=== PATIENT | female | born 1945 | race American Indian/Alaskan Native ===

== ENCOUNTER 2017-09-15 19:10 | Inpatient (IN) | payer MEDICARE, BC ==
[2017-09-15] MEDS ORDERED: Albuterol-Ipratrop 3 mg / 0.5 (3 ml) UD IH STA (19:52)
[2017-09-15] MEDS ORDERED: Albuterol-Ipratrop 3 mg / 0.5 (3 ml) UD ONE (19:59)
[2017-09-15 20:08] LABS: BASO # 0.01 K/mm3 (0.0-2.0); BASO % 0.2 % (0.0-3.0); EOS # 0.1 (0.0-0.7); EOS % 1.6 % (1.5-5.0); GRAN # 3.28 (1.4-6.5); GRAN % 57.7 % (50.0-68.0); HEMOGLOBIN 11.3 g/dL (12.0-16.0); LYMPH # 1.9 (1.2-3.4); LYMPH % 33.8 % (22.0-35.0); MEAN CELL VOLUME 77.6 fl (80.0-105.0); MEAN CORPUSCULAR HEMOGLOBIN 25.1 pg (25.0-35.0); MEAN CORPUSCULAR HGB CONC 32.4 g/dl (31.0-37.0); MEAN PLATELET VOLUME 10.6 fl (7.0-11.0); MONO # 0.4 (0.1-0.6); MONO % 6.7 % (1.0-6.0); RBC 4.5 10^6/uL (3.5-6.1); RED CELL DISTRIBUTION WIDTH 16.4 % (11.5-14.5); WHITE BLOOD COUNT 5.7 10^3/ul (4.5-11.0)
[2017-09-15 20:15] LABS: ALB/GLOB RATIO 1.5 (1.1-1.8); ALBUMIN 4.7 g/dL (3.0-4.8); ALT/SGPT 39 U/L (7-56); AST/SGOT 33 U/L (14-36); BLOOD UREA NITROGEN 19 mg/dL (7-21); CALCIUM 9.1 mg/dL (8.4-10.5); GFR AFRICAN-AMERICAN > 60; GFR NON-AFRICAN AMERICAN > 60; HDL CHOLESTEROL 68 mg/dL (29-60)
[2017-09-15 20:26] LABS: B-TYPE NATRIURETIC PEPTIDE 160 pg/mL (0-450); INR 1.05 (0.93-1.08); LDL CHOLESTEROL 69 mg/dL (0-129); PARTIAL THROMBOPLASTIN TIME 29.5 Seconds (25.1-36.5)
[2017-09-15 20:30] LABS: TROPONIN I < 0.01 ng/mL
--- NOTE | 2017-09-15 20:43 | ED PDOC ---
Arrival/HPI <Alin Chatman - Last Filed: 09/15/17 21:32> - General Historian: Patient <Shey Beavers A - Last Filed: 09/16/17 01:38> - General Chief Complaint: Shortness Of Breath Time Seen by Provider: 09/15/17 19:24 - History of Present Illness Narrative History of Present Illness (Text): 09/15/17 20:36 72yo female with past medical history of hypertension and Asthma who present with complaint of shortness of breath and intermittent numbness of her left side throughout today. States she uses her inhaler once at home. She denies chest pain, diaphoresis, fe3ver, chills, headache, slurred speech, focal weakness, nausea, vomiting, back pain, urinary/fecal incontinence, dizziness, any other complaint. (Shey Beavers A) Past Medical History - Provider Review Nursing Documentation Reviewed: Yes - Infectious Disease Hx of Infectious Diseases: None - Cardiac Hx Hypertension: Yes - Pulmonary Hx Asthma: Yes (last attack 12/2012) - Neurological Hx Neurological Disorder: Yes Other/Comment: occasional numbness and tingling in arms b/l - HEENT Hx HEENT Disorder: Yes Hx Cataracts: Yes (left eye) - Renal Hx Renal Disorder: No - Endocrine/Metabolic Hx Endocrine Disorders: No - Hematological/Oncological Hx Anemia: Yes - Integumentary Hx Dermatological Disorder: No - Musculoskeletal/Rheumatological Hx Arthritis: Yes (shoulders b/l) - Gastrointestinal Hx Gastrointestinal Disorders: No - Genitourinary/Gynecological Hx Genitourinary Disorders: No - Psychiatric Hx Psychophysiologic Disorder: No Hx Substance Use: No - Surgical History Hx Tonsillectomy: Yes (1954) - Anesthesia Hx Anesthesia: Yes Hx Anesthesia Reactions: No Hx Malignant Hyperthermia: No - Suicidal Assessment Feels Threatened In Home Enviroment: No <Shey Beavers A - Last Filed: 09/16/17 01:38> Family/Social History - Physician Review Nursing Documentation Reviewed: Yes Family/Social History: Unknown Family HX Smoking Status: Never Smoked Hx Alcohol Use: Yes Hx Substance Use: No <Shey Beavers A - Last Filed: 09/16/17 01:38> Allergies/Home Meds <Alin Chatman - Last Filed: 09/15/17 21:32> <Shey Beavers A - Last Filed: 09/16/17 01:38> Allergies/Adverse Reactions: Allergies No Known Allergies Allergy (Verified 07/15/13 14:37) Home Medications: Home Meds Medication Instructions Recorded Confirmed Aspirin 81 mg PO Q48H 02/28/12 07/15/13 Lisinopril 10 mg PO HS 02/28/12 07/15/13 Metoprolol Tartrate 50 mg PO BID 02/28/12 07/15/13 Multivitamin [Multi Vitamins] 1 tab PO DAILY 02/28/12 07/15/13 Cyanocobalamin [Vitamin B12] 100 mcg PO DAILY 05/05/13 07/15/13 Review of Systems - Physician Review All systems were reviewed & negative as marked: Yes - Review of Systems Constitutional: Normal Eyes: Normal ENT: Normal Respiratory: SOB Cardiovascular: Normal Gastrointestinal: Normal Genitourinary Female: Normal Musculoskeletal: Normal Skin: Normal Neurological: Other (PAresthesia of left sided body). absent: Headache, Dizziness, Focal Weakness, Speech Changes, Facial Droop Endocrine: Normal Hemo/Lymphatic: Normal Psychiatric: Normal <Diru,Happiness A - Last Filed: 09/16/17 01:38> Physical Exam Vital Signs Reviewed: Yes Temperature: Afebrile Blood Pressure: Normal Pulse: Regular Respiratory Rate: Normal Appearance: Positive for: Well-Appearing, Non-Toxic, Comfortable Pain Distress: None Mental Status: Positive for: Alert and Oriented X 3 - Systems Exam Head: Present: Atraumatic, Normocephalic Pupils: Present: PERRL Extroacular Muscles: Present: EOMI Conjunctiva: Present: Normal Mouth: Present: Moist Mucous Membranes Neck: Present: Normal Range of Motion Respiratory/Chest: Present: Clear to Auscultation, Good Air Exchange. No: Respiratory Distress, Accessory Muscle Use, Wheezes, Decreased Breath Sounds, Rales, Retracting, Rhonchi Cardiovascular: Present: Regular Rate and Rhythm, Normal S1, S2. No: Murmurs Abdomen: No: Tenderness, Distention, Peritoneal Signs Back: Present: Normal Inspection Upper Extremity: Present: Normal Inspection. No: Cyanosis, Edema Lower Extremity: Present: Normal Inspection. No: Edema Neurological: Present: GCS=15, CN II-XII Intact, Speech Normal, Motor Func Grossly Intact, Normal Sensory Function, Normal Cerebellar Funct, Norm Deep Tendon Reflexes, Gait Normal, Memory Normal, Normal 2Pt Descrimination Skin: Present: Warm, Dry, Normal Color. No: Rashes Psychiatric: Present: Alert, Oriented x 3, Normal Insight, Normal Concentration <Shey Beavers A - Last Filed: 09/16/17 01:38> Vital Signs Temp Pulse Resp BP Pulse Ox 09/16/17 00:59 71 18 160/73 H 100 09/15/17 19:30 20 98 09/15/17 19:21 98.3 F 79 18 169/67 H 98 Medical Decision Making <Alin Chatman - Last Filed: 09/15/17 21:32> <Shey Beavers A - Last Filed: 09/16/17 01:38> ED Course and Treatment: 09/15/17 22:04 FINDINGS: Brain: Areas of decreased attenuation noted within the periventricular and subcortical white matter likely related to chronic microangiopathic ischemic changes given the patient's stated age. No hemorrhage. Ventricles: Unremarkable. No ventriculomegaly. Bones/joints: Unremarkable. No acute fracture. Soft tissues: Unremarkable. Vasculature: Atherosclerotic calcifications of the carotid siphons.There is mild diffuse cerebral atrophy present, consistent with this patient's age. Sinuses: Unremarkable as visualized. No acute sinusitis. Mastoid air cells: Unremarkable as visualized. No mastoid effusion. IMPRESSION: No evidence of acute intracranial hemorrhage.CT can miss an acute nonhemorrhagic CVA. It should be noted that acute strokes may be initially radiologically occult on CT. If the patient is having persistent stroke like symptomatology, then MRI may be beneficial. 09/16/17 01:33 PT presented for stated history. She was neurologically intact. Her NIHSS was zero. she notes that paresthesia has been intermittent throughout the day. She denied any focal weakness, slurred speech in Emergency department. Her lung was CTA and she was not hypoxic. She does not have the symptoms that wwwill warrant for calling code alert at this time. Lab was ordered and reviewed. EKG NSR @ 71bpm Chest X-Ray NAD Pt needs further neuro evaluation. Case was DW Dr. Shah and pt was admitted to his service. (Shey torres A) - Lab Interpretations Lab Results: 09/15/17 19:30 09/15/17 19:30 Lab Results 09/15/17 21:40: Blood Type Confirm A POSITIVE 09/15/17 20:30: Blood Type A POSITIVE, Antibody Screen Negative, BBK History Checked No verified bt 09/15/17 19:30: Sodium 140, Potassium 4.0, Chloride 102, Carbon Dioxide 28, Anion Gap 15, BUN 19, Creatinine 0.8, Est GFR ( Amer) > 60, Est GFR (Non- Af Amer) > 60, Random Glucose 94, Calcium 9.1, Total Bilirubin 0.6, AST 33, ALT 39, Alkaline Phosphatase 61, Troponin I < 0.01, NT-Pro-B Natriuret Pep 160, Total Protein 7.8, Albumin 4.7, Globulin 3.1, Albumin/Globulin Ratio 1.5, Triglycerides 119, Cholesterol 173, LDL Cholesterol Direct 69, HDL Cholesterol 68 H 09/15/17 19:30: PT 12.0, INR 1.05, APTT 29.5 09/15/17 19:30: WBC 5.7, RBC 4.50, Hgb 11.3 L, Hct 34.9 L, MCV 77.6 L, MCH 25.1 , MCHC 32.4, RDW 16.4 H, Plt Count 231, MPV 10.6, Gran % 57.7, Lymph % (Auto) 33.8, [place] % (Auto) 6.7 H, Eos % (Auto) 1.6, Baso % (Auto) 0.2, Gran # 3.28, Lymph # (Auto) 1.9, [place] # (Auto) 0.4, Eos # (Auto) 0.1, Baso # (Auto) 0.01 - RAD Interpretation Radiology Orders: 09/15/17 19:48 HEAD W/O CONTRAST [CT] Stat 09/15/17 19:49 CHEST PORTABLE [RAD] Stat - Medication Orders Current Medication Orders: Discontinued Medications Albuterol/Ipratropium (Duoneb 3 Mg/0.5 Mg (3 Ml) Ud) 3 ml IH STAT STA Stop: 09/15/17 19:53 Last Admin: 09/15/17 20:22 Dose: 3 ml Aspirin (Aspirin) 325 mg PO STAT STA Stop: 09/15/17 19:49 Last Admin: 09/15/17 20:22 Dose: 325 mg Tramadol HCl (Ultram) 50 mg PO STAT STA Stop: 09/15/17 21:39 NIHSS Stroke Scale 3 - Date/Time Evaluation Performed Date Performed: 09/15/17 Time Performed: 20:05 When Was NIHSS Performed: Baseline - How Severe is the Stroke Level of Consciousness: 0=Alert LOC to Questions: 0=Both comments correct LOC to commands: 0=Obeys both correctly Best Gaze: 0=Normal Visual: 0=No visual loss Facial: 0=Normal Motor Arm - Left: 0=No drift Motor Arm - Right: 0=No drift Motor Leg - Left: 0=No drift Motor Leg - Right: 0=No drift Limb Ataxia: 0=Absent Sensory: 0=Normal Best Language: 0=No aphasia Dysarthia: 0=Normal articulation Extinction & Inattention (Neglect): 0=Normal, no object Score: 0 <Shey Beavers - Last Filed: 09/16/17 01:38> rTPA Inclusion/Exclusion - Refusal of Treatment Patient Refused Treatment: No - Inclusion Criteria for Altepase Patient is 18 years or Older: Yes The Clinical Diagnosis of Ischemic Stroke That is Causing a Potentially Disabling Neurological Deficit: No Time of Onset is Well Established to be Less Than 270 Minute Before Treatment Would Begin: No Risk/Benefit Discussed With Patient/Family Member Present: No - Exclusion Criteria for Altepase Uncontrolled Hypertension at Time of Treatment (Systolic BP above 185 or Diastolic BP above 110 mmHg): No Active Internal Bleeding: No Known Bleeding Diathesis Including but Not Limited to: Platelets Below 100,000/ mm,PTT Above 40 sec After Heparin Use, Current Use of Oral Anitcoagulant With INR Greater Than 1.7 or PT Greater Than 15 secs: No Evidence of an Intracranial Hemorrhage: No Evidence of Major Acute Infarct With Signs Greater Than 1/3 MCA Territory: No Suspicion of Subarachnoid Hemorrhage on Pretreatment Evaluation Even if CT Head Negative For Hemorrhage: No - Warning to TPA With Conditions Following Conditions Weighed Against Anticipated Benefit: No Condition: Stroke Serevity Too Mild <Shey Beavers - Last Filed: 09/16/17 01:38> - PA / TECHNICAL LABORATORY ASST / Resident Statement MAKSIM has reviewed & agrees with the documentation as recorded. MAKSIM has examined the patient and agrees with the treatment plan. <Alin Chatman - Last Filed: 09/15/17 21:32> Disposition/Present on Arrival <Alin Chatman - Last Filed: 09/15/17 21:32> - Present on Arrival Any Indicators Present on Arrival: No History of DVT/PE: No History of Uncontrolled Diabetes: No Urinary Catheter: No History of Decub. Ulcer: No History Surgical Site Infection Following: None - Disposition Have Diagnosis and Disposition been Completed?: Yes Disposition Time: 22:00 Patient Plan: Admission <Shey Beavers - Last Filed: 09/16/17 01:38> - Disposition Diagnosis: TIA (transient ischemic attack), Asthma Disposition: HOSPITALIZED Condition: STABLE
[2017-09-16 02:01] VITALS: RESP 20
[2017-09-16 03:23] VITALS: BMI 34.0
--- NOTE | 2017-09-16 09:04 | CP.PCM.PN ---
Subjective - Date & Time of Evaluation Date of Evaluation: 09/16/17 Time of Evaluation: 08:30 - Subjective Subjective: House Physician Resident Jaden Hunt, PGY-3 IM Called to see patient for complaint of left shoulder pain, nursing unable to reach PMD (Dr. Shah). On exam, patient is AAOx3 (self, location, year), good insight, reporting that this is exacerbation of her long-standing arthritis shoulder pain, which she experiences intermittently at home as well. Denies any loss of sensation or motor control in arm, ROM is limited 2/2 pain (which she also reports as baseline), but passive ROM remains intact, good distal pulses present (+2 radial, +1 ulnar), and sensation to touch intact throughout. Patient reports her home management of these pain flares is tylenol PRN, usually only needs 1 dose every few days. Reviewed ED documentation and prior admission notes, current labs, current orders, and home medications. LFTs on admission all within normal limits. Presented for abnormal paresthesias, Neuro consulted by PMD for TIA. However reported that she is tolerating her PO meds, so will give tylenol PO 650mg x1 for this pain. Nursing to continue to try reaching PMD for diet order. Objective - Vital Signs/Intake and Output Vital Signs (last 24 hours): Temp Pulse Resp BP Pulse Ox 97.8 F 63 20 165/72 H 98 09/16/17 07:59 09/16/17 07:59 09/16/17 07:59 09/16/17 07:59 09/16/17 07:59 Intake and Output: 09/16/17 09/16/17 06:59 18:59 Intake Total 80 Balance 80 - Medications Medications: Current Medications Albuterol/Ipratropium (Duoneb 3 Mg/0.5 Mg (3 Ml) Ud) 3 ml IH QIDRESP [facility] Aspirin (Ecotrin) 325 mg PO DAILY [facility] Famotidine (Pepcid) 40 mg PO HS [facility] Heparin Sodium (Porcine) (Heparin) 5,000 units SC Q12 [facility] PRN Reason: Protocol Lisinopril (Zestril) 10 mg PO HS [facility] Metoprolol Tartrate (Lopressor) 50 mg PO BID [facility] - Labs Labs: PT 12.0 SECONDS (9.4-12.5) 09/15/17 19:30 INR 1.05 (0.93-1.08) 09/15/17 19:30 APTT 29.5 Seconds (25.1-36.5) 09/15/17 19:30 - Constitutional Appears: Non-toxic, No Acute Distress - Head Exam Head Exam: NORMAL INSPECTION, NORMOCEPHALIC - Eye Exam Eye Exam: Normal appearance. absent: Conjunctival injection, Scleral icterus - ENT Exam ENT Exam: Mucous Membranes Moist - Respiratory Exam Respiratory Exam: NORMAL BREATHING PATTERN. absent: Respiratory Distress - Extremities Exam Additional comments: full passive ROM of LUE, full ROM of L hand/wrist, intact and equal sensation to touch throughout LUE - Psychiatric Exam Psychiatric exam: Normal Affect, Normal Mood - Skin Skin Exam: Dry, Intact, Normal Color, Warm
[2017-09-16] MEDS: Aspirin 325 mg EC Tablets PO SCH (09:29)
--- NOTE | 2017-09-16 10:30 | CT ---
Date of service: 09/15/2017 PROCEDURE: CT HEAD WITHOUT CONTRAST. HISTORY: LE paresthesia COMPARISON: None available. TECHNIQUE: Axial computed tomography images were obtained through the head/brain without intravenous contrast. Coronal and sagittal reconstructed images. Radiation dose: Total exam DLP = 989.62 mGy-cm. This CT exam was performed using one or more of the following dose reduction techniques: Automated exposure control, adjustment of the mA and/or kV according to patient size, and/or use of iterative reconstruction technique. FINDINGS: HEMORRHAGE: No intracranial hemorrhage. BRAIN: No mass effect or edema. No atrophy or chronic microvascular ischemic changes. VENTRICLES: Unremarkable. No hydrocephalus. CALVARIUM: Unremarkable. PARANASAL SINUSES: Unremarkable as visualized. No significant inflammatory changes. MASTOID AIR CELLS: Unremarkable as visualized. No inflammatory changes. OTHER FINDINGS: None. IMPRESSION: No acute intracranial abnormalities. No significant findings to account for the clinical presentation. Concordant results (preliminary interpretation) provided by [employer]. Procedure Completed: 21:24. Preliminary ([facility]) Report: Dictated and Authenticated: 22:02. Final Interpretation: 08:00. September 16, 2017.
--- NOTE | 2017-09-16 10:57 | RAD ---
Date of service: 09/15/2017 HISTORY: Code Stroke COMPARISON: 02/28/2012. FINDINGS: LUNGS: No active pulmonary disease. PLEURA: No significant pleural effusion identified, no pneumothorax apparent. CARDIOVASCULAR: No radiographic findings to suggest acute or significant cardiovascular disease. OSSEOUS STRUCTURES: No significant abnormalities. VISUALIZED UPPER ABDOMEN: Normal. OTHER FINDINGS: None. IMPRESSION: No active disease. No significant interval change compared to the prior examination(s).
[2017-09-16] MEDS: Albuterol-Ipratrop 3 mg / 0.5 (3 ml) UD IH SCH ×3 (12:19→20:34)
--- NOTE | 2017-09-16 12:39 | CARD ---
APPROVED REPORT Date of service: 09/16/2017 EKG Measurement Heart [id number] [id number] <Conclusion> Sinus bradycardia Minimal voltage criteria for LVH, may be normal variant Borderline ECG
--- NOTE | 2017-09-16 12:56 | CARD ---
APPROVED REPORT Date of service: 09/15/2017 EKG Measurement Heart [id number] <Conclusion> Normal sinus rhythm Minimal voltage criteria for LVH, may be normal variant Borderline ECG
--- NOTE | 2017-09-16 17:45 | CP.PCM.CON ---
History of Present Illness - History of Present Illness History of Present Illness: Miss Kelly is a 72 yr old woman with pmh of hypertension, and asthma who complains of numbness and tingling of her left arm and leg, with heaviness as well of left leg that has been occuring since yesterday afternoon. Miss Kelly says that it started suddenly but does not recall if her blood pressure was elevated at the time. Since then, she has not been able to walk properly. She denies word finding difficulty, dizziness, nausea, vomiting, or headache. PMH/PSH: as above.no strokes, no history of afib. FH/SH: , has one son. no tobacco, no etoh. All: nkda. on exam NIH stroke scale is 2. She has weakness of her left leg and decreased ft, pin in her left arm and leg. aaox3. PERRL. Cn 2-12 normal. no facial asymmetry. Speech fluent. Can name and repeat, no alexia, no apraxia. Motor: strength right upper limb,lower limb 5/5. left upper limb is 4/5, left lower limb 4/5 with hemiplegic gait. Senosry: decreased ft, pin in left upper and lower limb Cerebellar: no dysmetria, no ataxia. Gait: patient walks with a hemiplegic gait. +2 dtr ul and ll bl. Toes downgoing. no clonus. 7 Past Patient History - Infectious Disease Hx of Infectious Diseases: None - Past Medical History & Family History Past Medical History?: Yes - Past Social History Smoking Status: Never Smoked - CARDIAC Hx Hypertension: Yes - PULMONARY Hx Asthma: Yes (last attack 12/2012) - NEUROLOGICAL Hx Neurological Disorder: Yes Other/Comment: occasional numbness and tingling in arms b/l - HEENT Hx HEENT Problems: Yes Hx Cataracts: Yes (left eye) - RENAL Hx Chronic Kidney Disease: No - ENDOCRINE/METABOLIC Hx Endocrine Disorders: No - HEMATOLOGICAL/ONCOLOGICAL Hx Anemia: Yes - INTEGUMENTARY Hx Dermatological Problems: No - MUSCULOSKELETAL/RHEUMATOLOGICAL Hx Arthritis: Yes (Mode shoulders) - GASTROINTESTINAL Hx Gastrointestinal Disorders: No - GENITOURINARY/GYNECOLOGICAL Hx Genitourinary Disorders: No - PSYCHIATRIC Hx Psychophysiologic Disorder: No Hx Substance Use: No - SURGICAL HISTORY Hx Tonsillectomy: Yes (1955) - ANESTHESIA Hx Anesthesia: Yes Hx Anesthesia Reactions: No Hx Malignant Hyperthermia: No Meds Allergies/Adverse Reactions: Allergies Allergy/AdvReac Type Severity Reaction Status Date / Time No Known Allergies Allergy Verified 07/15/13 14:37 - Medications Medications: Current Medications Acetaminophen (Tylenol 325mg Tab) 650 mg PO TID [facility] Last Admin: 09/16/17 17:14 Dose: 650 mg Albuterol/Ipratropium (Duoneb 3 Mg/0.5 Mg (3 Ml) Ud) 3 ml IH QIDRESP [facility] Last Admin: 09/16/17 15:48 Dose: 3 ml Aspirin (Ecotrin) 325 mg PO DAILY [facility] Last Admin: 09/16/17 09:29 Dose: 325 mg Famotidine (Pepcid) 40 mg PO HS [facility] Heparin Sodium (Porcine) (Heparin) 5,000 units SC Q12 [facility] PRN Reason: Protocol Last Admin: 09/16/17 09:29 Dose: 5,000 units Lisinopril (Zestril) 10 mg PO HS [facility] Metoprolol Tartrate (Lopressor) 50 mg PO BID [facility] Last Admin: 09/16/17 17:13 Dose: 50 mg Results - Vital Signs Recent Vital Signs: Last Vital Signs Temp 98.2 F 09/16/17 17:12 Pulse 65 09/16/17 17:12 Resp 20 09/16/17 17:12 BP 185/84 H 09/16/17 17:13 Pulse Ox 98 09/16/17 17:12 - Labs Result Diagrams: 09/15/17 19:30 09/15/17 19:30 Assessment & Plan - Assessment and Plan (Free Text) Assessment: 72 yr old woman with probable right brower radiata stroke, etiology may lacunar but embolic is also a possiblity. We will start stroke workup. Plan: 1. MRI Brain without anna 2. aspirin 325 mg po daily 3. CTA head and neck with contrast 4. Lipid profile 5. PT/St/OT 6. ECHO 7. Please keep blood pressure at about 180/90. Thank you Dr. navarro
[2017-09-16] MEDS ORDERED: Iodixanol 320 mg/ml 150 ml Bottle IV ONE (22:17)
[2017-09-16] MEDS ORDERED: Iodixanol 320 MG/ML 100 ML BOTTLE IV ONE (23:33)
[2017-09-17] MEDS: Albuterol-Ipratrop 3 mg / 0.5 (3 ml) UD IH SCH ×4 (07:45→19:55)
--- NOTE | 2017-09-17 08:41 | HP ---
The patient was admitted today. A 72-year-old female came in because of chief complaint of left leg numbness and weakness. HISTORY OF PRESENT ILLNESS: A 72-year-old female with history of hypertension, hypercholesterolemia, and asthma, complained of sudden numbness, sudden tingling of the left arm, left leg with some heaviness in her left leg. The patient noted that on the day of admission in the morning, she came in at 5:00 p.m. to the emergency room for further evaluations. The patient denied any nausea, any headache, any vomiting, any dizziness. No trauma, no fever. No other complaints. PAST MEDICAL HISTORY: As I mentioned, hypertension, hypercholesterolemia, obesity, asthma. No history of cardiac disease or cardiac arrhythmias, and no history of neurologic disease in the past. SOCIAL HISTORY: She is , has one son. No smoking. no drinking. She quit almost 30 years ago, smoking. ALLERGIES: NO KNOWN ALLERGY. REVIEW OF SYSTEMS: She has some left shoulder pain, which is helped with Tylenol. She does have difficulty in ambulation due to body habitus and obesity, knee arthritis. She gets some wheezing, but otherwise rest is negative. PHYSICAL EXAMINATION: VITAL SIGNS: As follows, temperature 98, heart rate 65, blood pressure 185/84, respirations 20, saturation 98. HEAD AND NECK: Normal. No JVD. No thyromegaly. CHEST: Clear. Good air entry. CARDIAC: First and second sound normal. ABDOMEN: Soft and nontender. EXTREMITIES: She moves all extremity except the shoulder. She has limited movement due to hip pain and numbness and tingling disappeared. LABORATORY STUDIES: CT of head negative for any bleed. She also had an EKG, which was sinus bradycardia, LVH. Chest x-ray, no active disease. White count is 5.7, hemoglobin 11.3, hematocrit 34.9, platelets 231. Chemistry, sodium 140, potassium 4, chloride 102, bicarb 28. BUN 19, creatinine 0.8. Liver function test is normal. Troponin is 0.01. LDL 69, HDL 68, triglycerides normal, 190. The patient also had a PT/PTT, which is normal. IMPRESSION AND PLAN: 1. Transient ischemic attacks with left side affected. The patient now is better, although she does complain on the left side, a kind of heavy. We will get Neurology consult to evaluate the patient. We will get also physical therapy, although head and neck power is normal. There is no deficit, but we will get evaluation from Physical Therapy for gait training and ambulation. 2. Hypertension. We will resume her blood pressure medicine. We will monitor her pressure. 3. Hypercholesterolemia. We will resume her cholesterol medicine. We will continue aspirin 325 and we will follow up clinically. Continue current treatment. Right now, the patient is back on Zestril 10 mg, metoprolol 50 mg b.i.d., and that is her current blood pressure medicine. I will consider increasing the Zestril to 20 mg everyday. Reynaldo Shah MD
[2017-09-17 09:27] LABS: ALB/GLOB RATIO 1.4 (1.1-1.8); ALBUMIN 4.1 g/dL (3.0-4.8); ALT/SGPT 36 U/L (7-56); AST/SGOT 28 U/L (14-36); BLOOD UREA NITROGEN 10 mg/dL (7-21); CALCIUM 9.3 mg/dL (8.4-10.5); GFR AFRICAN-AMERICAN > 60; GFR NON-AFRICAN AMERICAN > 60
--- NOTE | 2017-09-17 09:44 | MRI ---
Date of service: 09/16/2017 PROCEDURE: MRI BRAIN WITHOUT CONTRAST HISTORY: stroke COMPARISON: None. TECHNIQUE: Multiplanar, multisequence MR images of the brain were obtained without intravenous contrast enhancement. FINDINGS: HEMORRHAGE: None DWI: There is a 5 x 15 mm acute infarct in the right basal ganglia adjacent to the internal capsule BRAIN PARENCHYMA: No mass effect or edema. No atrophy or chronic microvascular ischemic changes. VENTRICLES: Unremarkable. No hydrocephalus. CRANIUM: Unremarkable. ORBITS: Grossly unremarkable. PARANASAL SINUSES/MASTOIDS: Clear VASCULAR SYSTEM: Skull base flow voids intact. OTHER FINDINGS: The report concurs with the preliminary [facility] report IMPRESSION: There is a 5 x 15 mm acute infarct in the right basal ganglia adjacent to the internal capsule
[2017-09-17 09:45] LABS: BASO # 0.01 K/mm3 (0.0-2.0); BASO % 0.2 % (0.0-3.0); EOS # 0.1 (0.0-0.7); EOS % 1.5 % (1.5-5.0); GRAN # 2.59 (1.4-6.5); GRAN % 56.5 % (50.0-68.0); HEMOGLOBIN 11.2 g/dL (12.0-16.0); LYMPH # 1.7 (1.2-3.4); LYMPH % 36.4 % (22.0-35.0); MEAN CELL VOLUME 78.2 fl (80.0-105.0); MEAN CORPUSCULAR HEMOGLOBIN 24.9 pg (25.0-35.0); MEAN CORPUSCULAR HGB CONC 31.9 g/dl (31.0-37.0); MEAN PLATELET VOLUME 10.4 fl (7.0-11.0); MONO # 0.3 (0.1-0.6); MONO % 5.4 % (1.0-6.0); RBC 4.49 10^6/uL (3.5-6.1); RED CELL DISTRIBUTION WIDTH 16.3 % (11.5-14.5); WHITE BLOOD COUNT 4.6 10^3/ul (4.5-11.0)
[2017-09-17] MEDS: Aspirin 325 mg EC Tablets PO SCH (09:49)
--- NOTE | 2017-09-17 12:45 | CP.PCM.PN ---
<Nish Phillips - Last Filed: 09/17/17 21:58> Subjective - Date & Time of Evaluation Date of Evaluation: 09/17/17 Time of Evaluation: 09:33 - Subjective Subjective: Nish Phillips PGY2 Neurology Progress Note for Dr. Currie Patient was seen and examined at bedside. She states that her symptoms have improved and that she is able to ambulate with her cane to the restroom. she denies changes in symptoms, weakness, chest pain or shortness of breath. Objective - Vital Signs/Intake and Output Vital Signs (last 24 hours): Temp Pulse Resp BP Pulse Ox 97.1 F L 65 20 170/90 H 99 09/17/17 08:00 09/17/17 08:00 09/17/17 08:00 09/17/17 09:56 09/17/17 08:00 Intake and Output: 09/17/17 09/17/17 06:59 18:59 Intake Total 120 Balance 120 - Medications Medications: Current Medications Acetaminophen (Tylenol 325mg Tab) 650 mg PO TID [facility] Last Admin: 09/17/17 09:49 Dose: 650 mg Albuterol/Ipratropium (Duoneb 3 Mg/0.5 Mg (3 Ml) Ud) 3 ml IH QIDRESP [facility] Last Admin: 09/17/17 11:01 Dose: 3 ml Aspirin (Ecotrin) 325 mg PO DAILY [facility] Last Admin: 09/17/17 09:49 Dose: 325 mg Atorvastatin Calcium (Lipitor) 10 mg PO HS [facility] Last Admin: 09/16/17 21:18 Dose: 10 mg Famotidine (Pepcid) 40 mg PO HS [facility] Last Admin: 09/16/17 21:18 Dose: 40 mg Heparin Sodium (Porcine) (Heparin) 5,000 units SC Q12 [facility] PRN Reason: Protocol Last Admin: 09/17/17 09:50 Dose: 5,000 units Lisinopril (Zestril) 20 mg PO DAILY [facility] Last Admin: 09/17/17 09:57 Dose: Not Given Metoprolol Tartrate (Lopressor) 50 mg PO BID [facility] Last Admin: 09/17/17 09:56 Dose: Not Given - Labs Labs: 09/17/17 09:00 09/17/17 09:00 PT 12.0 SECONDS (9.4-12.5) 09/15/17 19:30 INR 1.05 (0.93-1.08) 09/15/17 19:30 APTT 29.5 Seconds (25.1-36.5) 09/15/17 19:30 - Constitutional Appears: Well, Non-toxic, No Acute Distress - Head Exam Head Exam: NORMAL INSPECTION - Eye Exam Eye Exam: EOMI, Normal appearance, PERRL - ENT Exam ENT Exam: Mucous Membranes Moist - Neck Exam Neck Exam: Normal Inspection - Respiratory Exam Respiratory Exam: NORMAL BREATHING PATTERN. absent: Rales, Rhonchi - Cardiovascular Exam Cardiovascular Exam: RRR, +S1, +S2 - GI/Abdominal Exam GI & Abdominal Exam: Soft, Normal Bowel Sounds. absent: Distended, Tenderness - Extremities Exam Extremities Exam: Full ROM Additional comments: 5/5 RUE and RLE 4+/5 LUE and LLE - Back Exam Back Exam: NORMAL INSPECTION - Neurological Exam Neurological Exam: Awake, CN II-XII Intact (grossly), Oriented x3 - Psychiatric Exam Psychiatric exam: Normal Mood - Skin Skin Exam: Normal Color Assessment and Plan - Assessment and Plan (Free Text) Assessment: 72 yr old woman with pmh of hypertension and asthma who presents with numbness and tingling of her left arm and leg, found to have acute right basal ganglia infarct and occlusion of right MCA M1 segment. Symptoms are improving. Plan: - cont Aspirin and Plavix per [facility]ANCE trial (for 3 weeks, then follow-up with Dr. Currie in his office to d/c one of the meds) - cont Lipitor - Echo pending - PT recommending TCU eval vs acute rehab - Lipid panel showing LDL 69, HDL 68 - A1C 6 - HHD - Further recs per Dr. Currie Case was reviewed and discussed with attending, Dr. Currie <Stephan Currie - Last Filed: 09/17/17 23:45> Objective - Vital Signs/Intake and Output Vital Signs (last 24 hours): Temp Pulse Resp BP Pulse Ox 97.9 F 100 H 20 182/66 H 99 09/17/17 17:16 09/17/17 18:00 09/17/17 17:16 09/17/17 17:16 09/17/17 17:16 Intake and Output: 09/17/17 09/18/17 18:59 06:59 Intake Total 1190 Balance 1190 - Medications Medications: Current Medications Acetaminophen (Tylenol 325mg Tab) 650 mg PO TID [facility] Last Admin: 09/17/17 22:22 Dose: 650 mg Albuterol/Ipratropium (Duoneb 3 Mg/0.5 Mg (3 Ml) Ud) 3 ml IH QIDRESP [facility] Last Admin: 09/17/17 19:55 Dose: 3 ml Amlodipine Besylate (Norvasc) 5 mg PO DAILY [facility] Aspirin (Ecotrin) 325 mg PO DAILY [facility] Last Admin: 09/17/17 09:49 Dose: 325 mg Atorvastatin Calcium (Lipitor) 10 mg PO HS [facility] Last Admin: 09/17/17 22:16 Dose: 10 mg Clopidogrel Bisulfate (Plavix) 75 mg PO DAILY [facility] Famotidine (Pepcid) 40 mg PO HS [facility] Last Admin: 09/17/17 22:16 Dose: 40 mg Heparin Sodium (Porcine) (Heparin) 5,000 units SC Q12 [facility] PRN Reason: Protocol Last Admin: 09/17/17 22:16 Dose: 5,000 units Lisinopril (Zestril) 20 mg PO DAILY [facility] Last Admin: 09/17/17 09:57 Dose: Not Given Metoprolol Tartrate (Lopressor) 50 mg PO BID [facility] Last Admin: 09/17/17 17:32 Dose: 50 mg - Labs Labs: PT 12.0 SECONDS (9.4-12.5) 09/15/17 19:30 INR 1.05 (0.93-1.08) 09/15/17 19:30 APTT 29.5 Seconds (25.1-36.5) 09/15/17 19:30 Attending/Attestation - Attestation I have personally seen and examined this patient.: Yes I have fully participated in the care of the patient.: Yes I have reviewed all pertinent clinical information, including history, physical exam and plan: Yes
[2017-09-17] MEDS ORDERED: Potassium Chloride 20 mEq ER Tab PO SCH (13:30)
--- NOTE | 2017-09-17 13:48 | CP.PCM.CON ---
History of Present Illness - History of Present Illness History of Present Illness: Nephrology Consultation Note: Assessment: stable Uncontrolled severe HTN Acute basal ganglia CVA Obesity Hypokalemia hx of bronchial asthma Plan HTN control with meds as ordered. Permissive HTN for now. continue with CELSO inh. supplement KDUR 40 meq today. check renin/phan and metanephrine, renal artery doppler UA, urine pro/cr check Vit D level continue with ASA and statins Neurology following anemia management as per primary team Dose meds/antibiotics for GFR>60. Glycemic control pt advised to follow low Na diet, exercise, lifestyle modifications and need to loose weight Further work up/management as per primary team Thanks for allowing me to participate in care of your patient. Will follow patient with you. Please call if any Qs. had d/w team Dr Kian Harris Office: [phone] CC: weakness left side reason for consult: HTN management HPI: Pt is a 72 F with hx of HTN >10 years, obesity and asthma presented with left side weakness and numbness, found to have hgih BP with basal ganglia infarct hence renal consulted for HTN management pt feels better at this time. Denies OTC/herbal meds or NSAIDs. denies etoh/drugs/diuretics or laxatives no urine complaints. follows low Na diet. does exercise as well ex smoker, quit >20 years ago ROS: noted events overnight. pt feels better. Cardiovascular: No chest pain. Pulmonary: no shortness of breath Gastrointestinal: denies abdominal pain No nausea. No vomiting. Genitourinary: No pain while urinating. Denies blood in urine. All other negative except as mentioned in HPI. weakness better Physical Examination: General Appearance: Comfortable, in no acute respiratory distress, co-operative . obese Vitals reviewed and noted as below Head; Atraumatic, normocephalic ENT: no ulcers no thrush. Tongue is midline. Oropharynx: no rash or ulcers. EYES: Pupils are equal, round and reactive to light accommodation. Eye muscles and extraocular movement intact. Sclera is anicteric. Neck; supple no lymphadenopathy, no thyromegaly or bruit Lungs: Normal respiratory rate/effort. Breath sounds bilateral equal and clear Heart: Normal rate. s1s2 normal. No rub or gallop. Extremities: no edema. No varicose veins Neurological: Patient is alert, awake and oriented to person, place and time. Skin: Warm and dry. Normal turgor. No rash. Palpitation: Normal elasticity for age Abdomen: Abdomen is soft. Bowel sounds +. There is no abdominal tenderness, no guarding/rigidity no organomegaly Psych: normal insight and normal affect/mood MSK: no joint tenderness or swelling. Digits and nails normal, no deformity : kidney or bladder not palpable Labs/imaging reviewed. Past medical history, past surgical history, family history, social history, allergy reviewed and noted as below Family hx: no hx of CKD. Rest non-contributory work up: CT brain: basal gnaglia infarct CXr WNL Past Patient History - Infectious Disease Hx of Infectious Diseases: None - Past Medical History & Family History Past Medical History?: Yes - Past Social History Smoking Status: Never Smoked - CARDIAC Hx Hypertension: Yes - PULMONARY Hx Asthma: Yes (last attack 12/2012) - NEUROLOGICAL Hx Neurological Disorder: Yes Other/Comment: occasional numbness and tingling in arms b/l - HEENT Hx HEENT Problems: Yes Hx Cataracts: Yes (left eye) - RENAL Hx Chronic Kidney Disease: No - ENDOCRINE/METABOLIC Hx Endocrine Disorders: No - HEMATOLOGICAL/ONCOLOGICAL Hx Anemia: Yes - INTEGUMENTARY Hx Dermatological Problems: No - MUSCULOSKELETAL/RHEUMATOLOGICAL Hx Arthritis: Yes (Mode shoulders) - GASTROINTESTINAL Hx Gastrointestinal Disorders: No - GENITOURINARY/GYNECOLOGICAL Hx Genitourinary Disorders: No - PSYCHIATRIC Hx Psychophysiologic Disorder: No Hx Substance Use: No - SURGICAL HISTORY Hx Tonsillectomy: Yes (1954) - ANESTHESIA Hx Anesthesia: Yes Hx Anesthesia Reactions: No Hx Malignant Hyperthermia: No Meds Allergies/Adverse Reactions: Allergies Allergy/AdvReac Type Severity Reaction Status Date / Time No Known Allergies Allergy Verified 07/15/13 14:37 - Medications Medications: Current Medications Acetaminophen (Tylenol 325mg Tab) 650 mg PO TID [facility] Last Admin: 09/17/17 13:21 Dose: 650 mg Albuterol/Ipratropium (Duoneb 3 Mg/0.5 Mg (3 Ml) Ud) 3 ml IH QIDRESP [facility] Last Admin: 09/17/17 11:01 Dose: 3 ml Aspirin (Ecotrin) 325 mg PO DAILY [facility] Last Admin: 09/17/17 09:49 Dose: 325 mg Atorvastatin Calcium (Lipitor) 10 mg PO HS [facility] Last Admin: 09/16/17 21:18 Dose: 10 mg Clopidogrel Bisulfate (Plavix) 75 mg PO DAILY [facility] Famotidine (Pepcid) 40 mg PO HS [facility] Last Admin: 09/16/17 21:18 Dose: 40 mg Heparin Sodium (Porcine) (Heparin) 5,000 units SC Q12 [facility] PRN Reason: Protocol Last Admin: 09/17/17 09:50 Dose: 5,000 units Lisinopril (Zestril) 20 mg PO DAILY [facility] Last Admin: 09/17/17 09:57 Dose: Not Given Metoprolol Tartrate (Lopressor) 50 mg PO BID [facility] Last Admin: 09/17/17 09:56 Dose: Not Given Results - Vital Signs Recent Vital Signs: Last Vital Signs Temp 97.1 F L 09/17/17 08:00 Pulse 65 09/17/17 08:00 Resp 20 09/17/17 08:00 BP 170/90 H 09/17/17 09:56 Pulse Ox 99 09/17/17 08:00 - Labs Result Diagrams: 09/17/17 09:00 09/17/17 09:00
--- NOTE | 2017-09-17 14:41 | CT ---
Date of service: 09/16/2017 PROCEDURE: CT Angiography of the neck with contrast HISTORY: rt BG infarct COMPARISON: MRI of the brain 09/16/2017 TECHNIQUE: Contiguous axial images of the neck were obtained from the level of the skull-base to the superior mediastinum in the arteriographic phase of enhancement. Coronal and sagittal reformats or also generated. IV contrast dose: 146 cc of Omni 350 Radiation Dose - DLP: 598 mGy-cm This CT exam was performed using one or more of the following dose reduction techniques: Automated exposure control, adjustment of the mA and/or kV according to patient size, and/or use of iterative reconstruction technique. FINDINGS: RIGHT CAROTID ARTERIES: Common Carotid Artery: Tortuosity approaching the midline Carotid Bifurcation: Normal. Internal Carotid Artery:Normal. External Carotid Artery (proximal branches): Normal. LEFT CAROTID ARTERIES: Common Carotid Artery: Tortuosity approach in the midline Carotid Bifurcation: Normal. Internal Carotid Artery:Calcified plaque with no significant stenosis External Carotid Artery (proximal branches): Normal. VERTEBRAL ARTERIES: Right Vertebral Artery: Normal. Left Vertebral Artery: Normal. OTHER FINDINGS: None. IMPRESSION: No significant stenosis PROCEDURE: CT Angiography of the Brain. HISTORY: rt BG infarct COMPARISON: None available. TECHNIQUE: CT angiography of the intracranial arteries was performed. Coronal and sagittal maximum intensity projection reformated images were generated. This CT exam was performed using one or more of the following dose reduction techniques: Automated exposure control, adjustment of the mA and/or kV according to patient size, and/or use of iterative reconstruction technique. FINDINGS: INTERNAL CEREBRAL ARTERIES: Unremarkable. The skull base, petrous, cavernous and supraclinoid segments are bilaterally widely patent. ANTERIOR CEREBRAL ARTERIES: Unremarkable. A1 and A2 segments are widely patent. Smaller distal branches unremarkable, as visualized. MIDDLE CEREBRAL ARTERIES: There is occlusion of the right proximal middle cerebral artery with diminished flow distally. POSTERIOR CIRCULATION: Basilar Artery: Unremarkable. Distal Vertebral Arteries: Unremarkable. Posterior Cerebral Arteries: Unremarkable. Posterior Inferior Cerebellar Arteries: Unremarkable. ANEURYSM/ VASCULAR MALFORMATIONS: None. OTHER FINDINGS: The report concurs with the preliminary [facility] report IMPRESSION: There is occlusion of the right proximal middle cerebral artery with diminished flow distally.
--- NOTE | 2017-09-17 14:49 | CARD ---
APPROVED REPORT Date of service: 09/17/2017 EXAM: Two-dimensional and M-mode echocardiogram with Doppler and color Doppler. INDICATION CVA/TIA 2D DIMENSIONS Left Atrium (2D)4.6 (1.6-4.0cm)IVSd1.2 (0.7-1.1cm) LVDd4.7 (3.9-5.9cm)PWd1.2 (0.7-1.1cm) LVDs3.1 (2.5-4.0cm)FS (%) 33.5 % LVEF (%)62.3 (>50%) M-Mode DIMENSIONS Aortic Root3.20 (2.2-3.7cm)Aortic Cusp Exc.2.00 (1.5-2.0cm) Aortic Valve AoV Peak Uwzuljxr327.0cm/Sharon Peak GR.18mmHg Mitral Valve MV E Lzfphywz69.3cm/sMV A Qdbsqzkz493.0cm/sE/A ratio0.8 TDI Lateral E' Peak V8.87cm/sMedial E' Peak V8.48cm/sE/Lateral E'10.6 E/Medial E'11.1 Pulmonary Valve PV Peak Ezntlssw85.6cm/sPV Peak Grad.2mmHg Tricuspid Valve TR Peak Gudelbgp596qf/sRAP GGDMXHRY88jcMpYJ Peak Gr.30mmHg [id number] LEFT VENTRICLE The left ventricle is normal size. There is mild concentric left ventricular hypertrophy. The left ventricular function is normal. The left ventricular ejection fraction is within the normal range. There is normal LV segmental wall motion. RIGHT VENTRICLE The right ventricle is normal size. The right ventricular systolic function is normal. ATRIA The left atrium is mildly dilated. The right atrium size is normal. The interatrial septum is intact with no evidence for an atrial septal defect. AORTIC VALVE The aortic valve is mildly sclerotic. MITRAL VALVE Mitral annular calcification is mild. Mitral regurgitation is trace. TRICUSPID VALVE The tricuspid valve is normal in structure. There is mild tricuspid regurgitation. PULMONIC VALVE The pulmonic valve is not well visualized. GREAT VESSELS The aortic root is normal in size. The IVC is normal in size and collapses >50% with inspiration. PERICARDIAL EFFUSION There is no pleural effusion. There is no pericardial effusion. <Conclusion> Dilatd LA. Normal LV size and systolic function. Mild concentric LVH. Aortic sclerosis. Mild TR. No obvious cardiac source of embolus seen, but if clinical suspiciion is high, consider JANE imaging.
[2017-09-17 17:17] VITALS: TEMP 97.9
[2017-09-17 17:29] LABS: PH,URINE 5.5 (4.7-8.0); URINE APPEARANCE CLEAR (CLEAR); URINE BILIRUBIN NEGATIVE (NEGATIVE); URINE BLOOD SMALL (NEGATIVE); URINE COLOR YELLOW (YELLOW); URINE GLUCOSE (UA) NEGATIVE (NEGATIVE); URINE LEUKOCYTE ESTERASE TRACE Leu/uL (NEGATIVE); URINE PROTEIN TRACE mg/dL (<30 mg/dL); URINE UROBILINOGEN 0.2 E.U./dL (<1 E.U./dL)
--- NOTE | 2017-09-18 04:35 | CON ---
REASON FOR CONSULTATION: TIA/rule out CVA, cardiac evaluation. BRIEF CLINICAL HISTORY: This is a 72-year-old female with past medical history of hypertension, hyperlipidemia, asthma, history of cardiac catheterization twice by Dr. Jasso, being followed by Dr. Jasso, last time seen on Sunday, came in with complaint of numbness in the left upper and the lower extremity. Denies any chest pain, denies shortness of breath, denies any palpitation. PAST MEDICAL HISTORY: Significant for hypertension, hyperlipidemia, obesity, asthma, and history of cardiac catheterization twice, 2 years ago and 5 years ago, being followed last Sunday by Dr. Jasso. SOCIAL HISTORY: Denies any smoking. Denies any history of alcohol abuse. FAMILY HISTORY: Noncontributory. CURRENT MEDICATIONS: The patient is taking at home, metoprolol tartrate 50 mg daily, lisinopril 10 mg daily, Naprosyn, multivitamin, cyanocobalamin, aspirin. REVIEW OF SYSTEMS: As per HPI. ALLERGIES: NO KNOWN DRUG ALLERGY. PREVIOUS CARDIAC WORKUP: As follows: History of cardiac catheterization twice, found to be nonobstructive coronary artery disease. PHYSICAL EXAMINATION VITAL SIGNS: Temperature afebrile, heart rate , blood pressure 170/90. HEENT: PERRLA, intact. NECK: Supple. No carotid bruit. No thyromegaly. CHEST: Clear to auscultation. HEART: S1 and S2 regular. ABDOMEN: Soft. EXTREMITIES: Clubbing and cyanosis, negative. LABORATORY DATA: Blood workup as follows: WBC 4.6, hemoglobin 11.2, hematocrit 35.1, platelet count . Chemistry showed sodium 139, potassium 3.5, chloride 103, carbon dioxide 27, anion gap of 13, BUN 10, creatinine 0.8. EKG shows normal sinus. No acute ST-T changes noted. Sinus bradycardia. Heart rate of 52, LVH. IMPRESSION: Rule out transient ischemic attack, rule out cerebrovascular accident, hypertension, hyperlipidemia, history of cardiac catheterization twice, nonobstructive coronary artery disease. RECOMMENDATIONS: We will get echo with bubble study, carotid duplex, MRA if needed, awaiting for brain MRI, lipid profile, TSH, hemoglobin A1c. Further recommendations will depend upon the hospital course. We will follow with you. Thank you, Dr. Shah, for providing us the opportunity in taking care of the patient, Andres Kelly. We will supplement potassium. Jaja Kramer MD
[2017-09-18 06:50] LABS: HEMOGLOBIN 11.2 g/dL (12.0-16.0); MEAN CELL VOLUME 78.1 fl (80.0-105.0); MEAN CORPUSCULAR HEMOGLOBIN 24.6 pg (25.0-35.0); MEAN CORPUSCULAR HGB CONC 31.5 g/dl (31.0-37.0); MEAN PLATELET VOLUME 10.5 fl (7.0-11.0); RBC 4.56 10^6/uL (3.5-6.1); RED CELL DISTRIBUTION WIDTH 16.7 % (11.5-14.5); WHITE BLOOD COUNT 3.9 10^3/ul (4.5-11.0)
[2017-09-18 06:57] LABS: ALB/GLOB RATIO 1.5 (1.1-1.8); ALT/SGPT 32 U/L (7-56); AST/SGOT 27 U/L (14-36); BLOOD UREA NITROGEN 11 mg/dL (7-21); CALCIUM 9.4 mg/dL (8.4-10.5); GFR AFRICAN-AMERICAN > 60; GFR NON-AFRICAN AMERICAN > 60; HDL CHOLESTEROL 61 mg/dL (29-60)
[2017-09-18 07:08] LABS: LDL CHOLESTEROL 73 mg/dL (0-129)
[2017-09-18] MEDS: Albuterol-Ipratrop 3 mg / 0.5 (3 ml) UD IH SCH ×2 (07:25→11:04)
--- NOTE | 2017-09-18 08:02 | CP.PCM.PN ---
Subjective - Date & Time of Evaluation Date of Evaluation: 09/18/17 Time of Evaluation: 06:10 - Subjective Subjective: Awake, alert, no distress, denies chest pain or shortness of breath Reason for consultation and follow up:Cardiac evaluation of TIA, rule out CVA, history of hypertension, hyperlipidemia Seen and examined by me and Dr. Kramer Objective - Vital Signs/Intake and Output Vital Signs (last 24 hours): Temp Pulse Resp BP Pulse Ox 97.9 F 61 20 187/86 H 99 09/17/17 17:16 09/18/17 06:00 09/17/17 17:16 09/18/17 07:15 09/17/17 17:16 Intake and Output: 09/18/17 09/18/17 06:59 18:59 Intake Total 1270 Balance 1270 - Medications Medications: Current Medications Acetaminophen (Tylenol 325mg Tab) 650 mg PO TID [facility] Last Admin: 09/17/17 22:22 Dose: 650 mg Albuterol/Ipratropium (Duoneb 3 Mg/0.5 Mg (3 Ml) Ud) 3 ml IH QIDRESP [facility] Last Admin: 09/18/17 07:25 Dose: Not Given Amlodipine Besylate (Norvasc) 5 mg PO DAILY [facility] Aspirin (Ecotrin) 325 mg PO DAILY [facility] Last Admin: 09/17/17 09:49 Dose: 325 mg Atorvastatin Calcium (Lipitor) 10 mg PO HS [facility] Last Admin: 09/17/17 22:16 Dose: 10 mg Clopidogrel Bisulfate (Plavix) 75 mg PO DAILY [facility] Famotidine (Pepcid) 40 mg PO HS [facility] Last Admin: 09/17/17 22:16 Dose: 40 mg Heparin Sodium (Porcine) (Heparin) 5,000 units SC Q12 [facility] PRN Reason: Protocol Last Admin: 09/17/17 22:16 Dose: 5,000 units Lisinopril (Zestril) 20 mg PO DAILY [facility] Last Admin: 09/17/17 09:57 Dose: Not Given Metoprolol Tartrate (Lopressor) 50 mg PO BID [facility] Last Admin: 09/17/17 17:32 Dose: 50 mg - Labs Labs: 09/18/17 06:00 09/18/17 06:00 PT 12.0 SECONDS (9.4-12.5) 09/15/17 19:30 INR 1.05 (0.93-1.08) 09/15/17 19:30 APTT 29.5 Seconds (25.1-36.5) 09/15/17 19:30 - Constitutional Appears: No Acute Distress - Head Exam Head Exam: NORMOCEPHALIC - Eye Exam Eye Exam: Normal appearance - ENT Exam ENT Exam: Mucous Membranes Moist - Respiratory Exam Respiratory Exam: Clear to Ausculation Bilateral, NORMAL BREATHING PATTERN - Cardiovascular Exam Cardiovascular Exam: +S1, +S2 - GI/Abdominal Exam GI & Abdominal Exam: Soft, Normal Bowel Sounds - Extremities Exam Extremities Exam: Normal Capillary Refill - Neurological Exam Neurological Exam: Alert, Awake, Oriented x3 - Psychiatric Exam Psychiatric exam: Normal Affect - Skin Skin Exam: Intact, Warm Assessment and Plan - Assessment and Plan (Free Text) Assessment: A 72 year old female who came in to the ER due to intermittent numbness of left side of arms and shortness of breath. history of hypertension, hyperlipidemia,asthma, non obstructive coronary artery disease (cardiac cath x 2 2004 and 2015). Follows up with Dr. Jasso at [place]. Plan: Echo done-dilated left atrium, aortic sclerosis, Mild TR no evidence source of embolus. Denies any symptoms now Uncontrolled blood pressure On Norvasc 5 mg daily,ASA 325 mg daily,Plavix 75 mg daily, Heparin 5,000 units q 12 hours,Lisinopril 20 mg daily, Lopressor 50 mg BID Will increase Norvasc and add Hydralazine TSH elevated, will start Synthroid. Lifestyle modification Weght reduction Continue current treatment Continue current medications Will follow up Plan and treatment discussed with Dr. Kramer
[2017-09-18 08:08] VITALS: PULSE 68; O2SAT 98
[2017-09-18] MEDS ORDERED: Levothyroxine 50 MCG TAB PO SCH (08:18)
--- NOTE | 2017-09-18 10:07 | PN ---
Copied To: Reynaldo Shah MD Attending MD: Reynaldo Shah MD. DATE: 09/17/2017 SUBJECTIVE: The patient is comfortable, no distress. The patient on the bed, comfortable, supine. She did have some physical therapy with assistance. She has no chest pain. No shortness of breath, stable otherwise. PHYSICAL EXAMINATION: VITAL SIGNS: Temperature 97.1, heart rate 65, blood pressure 170/90, respirations 20, sat 99% on room air. HEAD AND NECK: Normal. NECK: No JVD, no thyromegaly. CHEST: Clear bilateral. CARDIAC: First sound and second sound normal. ABDOMEN: Soft, obese, nontender. EXTREMITIES: No edema. NEUROLOGIC: Normal except the left leg seems, she is able to move it up and down, bend it and mild weakness. DATA: Her laboratory studies shows white count 4.6, hemoglobin 11.2, hematocrit 35.1, platelets 195. PT and PTT was normal. Sodium 139, potassium 3.5, chloride 103, bicarb 27, BUN 10, creatinine 0.8, blood sugar 193. Liver function test is normal. HDL cholesterol was 68, LDL cholesterol was 69. The patient has a TSH of 7.67, which is low. The patient had a CT angio, which shows middle cerebral artery infarction, right side and right basal ganglia infarction on the MRI. IMPRESSION AND PLAN: 1. Acute cerebrovascular accident, we will continue current therapy. Continue aspirin and Plavix as Neurology recommended. 2. Hypertension, we will continue followup, Dr. Langston will evaluate secondary hypertension. We will keep the pressure 160, not to go below 160 in the first few days of the stroke and we will continue to monitor her blood pressure. 3. Hypercholesterolemia. The patient's cholesterol seems normal. She does take cholesterol medication at home. 4. Left leg weakness, we will get physical therapy. Continue current medications, nebulizers, albuterol, aspirin 325 mg, heparin subcu for deep venous thrombosis prophylaxis, Lipitor 10, metoprolol 50 b.i.d., amlodipine 5 mg p.o. daily, famotidine 40, Plavix 75, Tylenol p.r.n., tramadol p.r.n. and Vistaril 20 mg p.o. daily. Continue current medications. 5. The patient is obese, she has a body mass index of 34, advised to lose weight. Continue current therapy. 6. Also, the patient has hypothyroidism, we will start the patient on levothyroxine 25 and we will follow up clinically. Reynaldo Shah MD [facility] # [id number]
[2017-09-18] MEDS ORDERED: Potassium Chloride 20 mEq ER Tab PO ONE ×2 (10:23→11:52)
[2017-09-18] MEDS: Aspirin 325 mg EC Tablets PO SCH (10:36)
[2017-09-18 12:02] VITALS: BP 157/78
--- NOTE | 2017-09-18 14:34 | CP.PCM.PN ---
Subjective - Date & Time of Evaluation Date of Evaluation: 09/18/17 Time of Evaluation: 14:33 - Subjective Subjective: Nephrology Consultation Note: Assessment: stable Uncontrolled severe HTN Acute basal ganglia CVA Obesity Hypokalemia hx of bronchial asthma Vitamin D deficiency Plan HTN control with meds as ordered. continue with CELSO inh as Lisinopril 40 mg per day . added Hydrochlorothiazide as well. supplement KDUR 40 meq today. check renin/phan and metanephrine, renal artery doppler UA, urine pro/cr Started weekly vitamin D continue with ASA and statins Neurology following anemia management as per primary team Dose meds/antibiotics for GFR>60. Glycemic control pt advised to follow low Na diet, exercise, lifestyle modifications and need to loose weight Further work up/management as per primary team Thanks for allowing me to participate in care of your patient. Will follow patient with you. Please call if any Qs. had d/w team Dr Kian Harris Office: [phone] CC: weakness left side reason for consult: HTN management HPI: Pt is a 72 F with hx of HTN >10 years, obesity and asthma presented with left side weakness and numbness, found to have hgih BP with basal ganglia infarct hence renal consulted for HTN management pt feels better at this time. Denies OTC/herbal meds or NSAIDs. denies etoh/drugs/diuretics or laxatives no urine complaints. follows low Na diet. does exercise as well ex smoker, quit >20 years ago ROS: noted events overnight. pt feels better. Cardiovascular: No chest pain. Pulmonary: no shortness of breath Gastrointestinal: denies abdominal pain No nausea. No vomiting. Genitourinary: No pain while urinating. Denies blood in urine. All other negative except as mentioned in HPI. weakness better Physical Examination: General Appearance: Comfortable, in no acute respiratory distress, co-operative . obese Vitals reviewed and noted as below Head; Atraumatic, normocephalic ENT: no ulcers no thrush. Tongue is midline. Oropharynx: no rash or ulcers. EYES: Pupils are equal, round and reactive to light accommodation. Eye muscles and extraocular movement intact. Sclera is anicteric. Neck; supple no lymphadenopathy, no thyromegaly or bruit Lungs: Normal respiratory rate/effort. Breath sounds bilateral equal and clear Heart: Normal rate. s1s2 normal. No rub or gallop. Extremities: no edema. No varicose veins Neurological: Patient is alert, awake and oriented to person, place and time. Skin: Warm and dry. Normal turgor. No rash. Palpitation: Normal elasticity for age Abdomen: Abdomen is soft. Bowel sounds +. There is no abdominal tenderness, no guarding/rigidity no organomegaly Psych: normal insight and normal affect/mood MSK: no joint tenderness or swelling. Digits and nails normal, no deformity : kidney or bladder not palpable Labs/imaging reviewed. Past medical history, past surgical history, family history, social history, allergy reviewed and noted as below Family hx: no hx of CKD. Rest non-contributory work up: CT brain: basal gnaglia infarct CXr WNL Objective - Vital Signs/Intake and Output Vital Signs (last 24 hours): Temp Pulse Resp BP Pulse Ox 97.9 F 68 20 157/78 H 98 09/18/17 08:06 09/18/17 10:36 09/18/17 08:06 09/18/17 12:02 09/18/17 08:06 Intake and Output: 09/18/17 09/18/17 06:59 18:59 Intake Total 1270 Balance 1270 - Medications Medications: Current Medications Acetaminophen (Tylenol 325mg Tab) 650 mg PO TID [facility] Last Admin: 09/18/17 10:36 Dose: 650 mg Albuterol/Ipratropium (Duoneb 3 Mg/0.5 Mg (3 Ml) Ud) 3 ml IH QIDRESP [facility] Last Admin: 09/18/17 11:04 Dose: 3 ml Amlodipine Besylate (Norvasc) 10 mg PO DAILY [facility] Last Admin: 09/18/17 10:47 Dose: Not Given Aspirin (Ecotrin) 325 mg PO DAILY [facility] Last Admin: 09/18/17 10:36 Dose: 325 mg Atorvastatin Calcium (Lipitor) 10 mg PO HS [facility] Last Admin: 09/17/17 22:16 Dose: 10 mg Clopidogrel Bisulfate (Plavix) 75 mg PO DAILY [facility] Last Admin: 09/18/17 10:36 Dose: 75 mg Famotidine (Pepcid) 40 mg PO HS [facility] Last Admin: 09/17/17 22:16 Dose: 40 mg Heparin Sodium (Porcine) (Heparin) 5,000 units SC Q12 [facility] PRN Reason: Protocol Last Admin: 09/18/17 10:35 Dose: 5,000 units Hydralazine HCl (Apresoline) 50 mg PO BID [facility] Last Admin: 09/18/17 10:36 Dose: 50 mg Hydralazine HCl (Apresoline) 10 mg IVP Q6 PRN PRN Reason: SBP above 170, DBP above 100 Hydrochlorothiazide (Hydrodiuril) 25 mg PO DAILY [facility] Levothyroxine Sodium (Synthroid) 50 mcg PO 0600 [facility] Lisinopril (Zestril) 40 mg PO QPM [facility] Metoprolol Tartrate (Lopressor) 50 mg PO BID [facility] Last Admin: 09/18/17 10:36 Dose: 50 mg - Labs Labs: 09/18/17 06:00 09/18/17 06:00 PT 12.0 SECONDS (9.4-12.5) 09/15/17 19:30 INR 1.05 (0.93-1.08) 09/15/17 19:30 APTT 29.5 Seconds (25.1-36.5) 09/15/17 19:30
[2017-09-18] MEDS ORDERED: Ergocalciferol 50,000 Intl Units Cap PO SCH (14:45)
[2017-09-19] MEDS ORDERED: Levothyroxine 50 MCG TAB PO SCH (06:00)
--- NOTE | 2017-09-19 18:14 | US ---
PROCEDURE: Bilateral renal artery duplex ultrasound. CLINICAL HISTORY: Renal artery stenosis. Uncontrolled hypertension. Evaluate for renovascular hypertension. PHYSICIAN(S): Zac Alegria M.D. TECHNIQUE: Duplex sonography with color-flow Doppler was used to evaluate the visualized segments of the main renal arteries. The patient was evaluated in a fasting state. Imaging in a supine and decubitus position was performed. Limited evaluation of the arcuate waveforms and resistive indices were performed. FINDINGS: The overall quality of the study is adequate. The kidneys are normal in size, shape, and location. The right kidney measures 11.4cm in length and the left kidney measures 11.6cm in length. No solid renal masses, abnormal calcifications, or hydronephrosis is seen. The main right renal artery is well visualized from the aorta to the hilum. The peak systolic velocity in the right main renal artery is 103 cm/sec. This is consistent with a 0 to 49% stenosis in the main right renal artery. The arcuate waveforms are normal. The resistive index is normal. The main left renal artery is also well seen from its origin to the renal hilum. The peak systolic velocity in the main left renal artery is 128cm/sec. This corresponds to a 0 to 49% stenosis in the main left renal artery. The arcuate waveforms and resistive indices are normal. IMPRESSION: 1. The main renal arteries are fairly well visualized. 2. No sonographically significant stenosis is identified. 3. The kidneys are normal and symmetric in size. There are no solid renal masses, abnormal calcifications or hydronephrosis noted.
== END 2017-09-18 16:02 | DRG 66 ==
LOC: ED 19:10 → ERH 22:51 → 3RNO 09-16 01:12 → OBSVTOIN 09-17 12:32
PROVIDERS: ADMIT Internal Medicine; ATTEND Internal Medicine
PROC: 3E0F7GC Introduction of Other Therapeutic Substance into Respiratory Tract, Via Natural or Artificial Opening (ICD-10-PCS; principal; 2017-09-17)
DX: I63.511 Cerebral infarction due to unspecified occlusion or stenosis of right middle cerebral artery (principal); I10 Essential (primary) hypertension; E78.00 Pure hypercholesterolemia, unspecified; I25.10 Atherosclerotic heart disease of native coronary artery without angina pectoris; E03.9 Hypothyroidism, unspecified; E55.9 Vitamin D deficiency, unspecified; E87.6 Hypokalemia; M19.012 Primary osteoarthritis, left shoulder; J45.909 Unspecified asthma, uncomplicated; E66.9 Obesity, unspecified; Z68.34 Body mass index [BMI] 34.0-34.9, adult; Z79.82 Long term (current) use of aspirin

== ENCOUNTER 2018-07-14 15:12 | Emergency (ER) | payer MEDICARE, BC ==
[2018-07-14 15:53] VITALS: RESP 16; TEMP 98.5; BMI 32.8
--- NOTE | 2018-07-14 16:18 | ED PDOC ---
Arrival/HPI - General Chief Complaint: Dizziness/Lightheaded Time Seen by Provider: 07/14/18 15:39 Historian: Patient - History of Present Illness Narrative History of Present Illness (Text): 07/14/18 16:19 73 year old female, with past medical history of CVA, hypertension, and asthma presents to the emergency department for lightheadedness for the past month. Patient states that standing makes her lightheadedness worse. She reports that during her last visit, her doctor discontinued her three blood pressure medications and put her on one. Also states that her stroke last year on September 15 left her with left-sided weakness. Patient denies any fevers, chills, chest pain, shortness of breath, abdominal pain, bleeding or any other complaints. Time/Duration: Other (1 month ) Symptom Onset: Gradual Symptom Course: Unchanged Activities at Onset: Light Context: Home Past Medical History - Provider Review Nursing Documentation Reviewed: Yes - Infectious Disease Hx of Infectious Diseases: None - Tetanus Immunization Tetanus Immunization: Unknown - Cardiac Hx Cardiac Disorders: Yes Hx Hypertension: Yes - Pulmonary Hx Asthma: Yes (last attack 12/2012) - Neurological HX Cerebrovascular Accident: Yes (08/2017) - HEENT Hx HEENT Disorder: Yes Hx Cataracts: Yes (left eye) - Renal Hx Renal Disorder: No - Endocrine/Metabolic Hx Endocrine Disorders: No - Hematological/Oncological Hx Blood Disorders: Yes Hx Anemia: Yes - Integumentary Hx Dermatological Disorder: No - Musculoskeletal/Rheumatological Hx Arthritis: Yes (Mode shoulders) - Gastrointestinal Hx Gastrointestinal Disorders: No - Genitourinary/Gynecological Hx Genitourinary Disorders: No - Psychiatric Hx Psychophysiologic Disorder: No Hx Substance Use: No - Surgical History Hx Tonsillectomy: Yes (1954) - Anesthesia Hx Anesthesia: Yes Hx Anesthesia Reactions: No Hx Malignant Hyperthermia: No - Suicidal Assessment Feels Threatened In Home Enviroment: No Family/Social History - Physician Review Nursing Documentation Reviewed: Yes Family/Social History: No Known Family HX Smoking Status: Never Smoked Hx Alcohol Use: No Hx Substance Use: No Allergies/Home Meds Allergies/Adverse Reactions: Allergies No Known Allergies Allergy (Verified 05/06/18 18:44) Home Medications: Home Meds Medication Instructions Recorded Confirmed Magnesium Oxide [Mag-Oxide] 400 mg PO PRN PRN 05/07/18 07/14/18 Ferrous Sulfate 325 mg PO TID 07/14/18 07/14/18 Review of Systems - Physician Review All systems were reviewed & negative as marked: Yes - Review of Systems Cardiovascular: absent: Chest Pain Gastrointestinal: absent: Abdominal Pain Physical Exam - Physical Exam Narrative Physical Exam (Text): 07/14/18 16:17 Constitutional: No acute distress. Head: Normocephalic. Atraumatic. Eyes: PERRL. ENT: Moist mucous membranes. Neck: Supple. Cardiovascular: Regular rate. Chest: No tenderness. Respiratory: Clear to auscultation bilaterally. GI: Soft. Nontender. Nondistended. Back: No CVA tenderness. Musculoskeletal: No tenderness or swelling of extremities. Skin: No rash. Neurologic: Alert, no focal deficit. Vital Signs Reviewed: Yes Vital Signs Temp Pulse Resp BP Pulse Ox 07/14/18 15:47 98.5 F 83 16 120/60 97 Temperature: Afebrile Blood Pressure: Normal Pulse: Regular Respiratory Rate: Normal Appearance: Positive for: Well-Appearing, Non-Toxic, Comfortable Pain Distress: None Mental Status: Positive for: Alert and Oriented X 3 Medical Decision Making ED Course and Treatment: 07/14/18 16:27 Impression: 73 year old female presents to emergency department for intermittent lightheadedness for the past month. Plan: -- Labs -- Chest X-ray -- Orthostatics negative -- Reassess and disposition Prior Visits: Patient seen in emergency department on 09/15/17 for CVA. 07/14/18 16:57 EKG: Ordered, reviewed, and independently interpreted the EKG. Rate : 70 BPM Rhythm : NSR Interpretation : No ST t-wave changes CXR FINDINGS: LUNGS: No active pulmonary disease. PLEURA: No significant pleural effusion identified, no pneumothorax apparent. CARDIOVASCULAR: Aortic atherosclerotic calcifications. Cardiomediastinal silhouette stably enlarged. OSSEOUS STRUCTURES: No significant abnormalities. VISUALIZED UPPER ABDOMEN: Normal. OTHER FINDINGS: None. IMPRESSION: No active disease. Patient with longstanding lightheadedness without new findings today. She states will follow up with her doctor on Sunday. 07/14/18 18:02 - RAD Interpretation Radiology Orders: 07/14/18 16:16 CHEST PORTABLE [RAD] Stat - Scribe Statement The provider has reviewed the documentation as recorded by the Scribe Tate Gerber All medical record entries made by the Scribe were at my direction and personally dictated by me. I have reviewed the chart and agree that the record accurately reflects my personal performance of the history, physical exam, medical decision making, and the department course for this patient. I have also personally directed, reviewed, and agree with the discharge instructions and disposition. Disposition/Present on Arrival - Present on Arrival Any Indicators Present on Arrival: No History of DVT/PE: No History of Uncontrolled Diabetes: No Urinary Catheter: No History of Decub. Ulcer: No History Surgical Site Infection Following: None - Disposition Have Diagnosis and Disposition been Completed?: Yes Diagnosis: Lightheadedness Disposition: HOME/ ROUTINE Disposition Time: 17:25 Patient Plan: Discharge Condition: STABLE Discharge Instructions (ExitCare): Orthostatic Hypotension Forms: [facility] (Armenian)
--- NOTE | 2018-07-14 16:29 | RAD ---
Date of service: 07/14/2018 HISTORY: lightheaded COMPARISON: Chest radiograph dated 09/15/2017. TECHNIQUE: 1 view obtained. FINDINGS: LUNGS: No active pulmonary disease. PLEURA: No significant pleural effusion identified, no pneumothorax apparent. CARDIOVASCULAR: Aortic atherosclerotic calcifications. Cardiomediastinal silhouette stably enlarged. OSSEOUS STRUCTURES: No significant abnormalities. VISUALIZED UPPER ABDOMEN: Normal. OTHER FINDINGS: None. IMPRESSION: No active disease.
[2018-07-14 17:03] LABS: BASO # 0.01 K/mm3 (0.0-2.0); BASO % 0.2 % (0.0-3.0); EOS # 0.1 (0.0-0.7); EOS % 2.1 % (1.5-5.0); LYMPH # 1.7 (1.2-3.4); LYMPH % 32.8 % (22.0-35.0); MEAN CORPUSCULAR HEMOGLOBIN 24.9 pg (25.0-35.0); MEAN CORPUSCULAR HGB CONC 31.5 g/dl (31.0-37.0); MEAN PLATELET VOLUME 10.3 fl (7.0-11.0); MONO # 0.2 (0.1-0.6); MONO % 4.7 % (1.0-6.0); RBC 4.42 10^6/uL (3.5-6.1); RED CELL DISTRIBUTION WIDTH 15.8 % (11.5-14.5); WHITE BLOOD COUNT 5.2 10^3/uL (4.5-11.0)
[2018-07-14 17:13] LABS: ALB/GLOB RATIO 1.4 (1.1-1.8); ALBUMIN 3.9 g/dL (3.0-4.8); ALT/SGPT 20 U/L (7-56); AST/SGOT 20 U/L (14-36); BLOOD UREA NITROGEN 16 mg/dL (7-21); CALCIUM 9.2 mg/dL (8.4-10.5); GFR NON-AFRICAN AMERICAN > 60
[2018-07-14 17:24] LABS: TROPONIN I < 0.01 ng/mL
[2018-07-14 18:28] VITALS: BP 130/77; PULSE 70; O2SAT 98
--- NOTE | 2018-07-15 11:26 | CARD ---
APPROVED REPORT Date of service: 07/14/2018 EKG Measurement Heart [id number] <Conclusion> Normal sinus rhythm Moderate voltage criteria for LVH, may be normal variant Borderline ECG
== END 2018-07-14 18:21 | disposition home or self-care (01) ==
LOC: ED 15:12
DX: R42 Dizziness and giddiness (principal); I10 Essential (primary) hypertension; Z86.73 Personal history of transient ischemic attack (TIA), and cerebral infarction without residual deficits